=== PATIENT | male | born 1980 | race Asian ===

== ENCOUNTER 2017-05-31 01:01 | Emergency (ER) | payer OTHER ==
[~2017-05-31] VITALS: Ht 167.6 cm; Wt 68.0 kg
[2017-05-31 01:04] VITALS: BP 135/78; PULSE 97; RESP 20; TEMP 98.1; O2SAT 98
[2017-05-31] MEDS ORDERED: TETANUS/DIPHTHERIA TOXOID ADULT 0.5 ML VIAL IM ONE (01:45)
[2017-05-31] MEDS ORDERED: MORPHINE SULFATE 4 MG/ML INJ IV PUSH ONE (01:45)
[2017-05-31] MEDS ORDERED: SODIUM CHLOR 0.9% 1000 ML INJ 1,000 ML IV ONE (01:45)
[2017-05-31] MEDS ORDERED: ceFAZolin 2 GM PREMIX 50 ML IV ONE (01:45)
[2017-05-31] MEDS ORDERED: ONDANSETRON HCL 4 MG/2 ML VIAL IV PUSH ONE (01:45)
[2017-05-31 02:00] LABS: AUTOMATED NEUTROPHIL # 3.3 TH/MM3 (1.8-7.7); BASOPHIL % 0.6 % (0.0-2.0); EOSINOPHIL # 0.2 TH/MM3 (0-0.4); EOSINOPHIL % 2.7 % (0.0-4.0); HEMATOCRIT 43.1 % (39.0-51.0); HEMO FLAGS DIFF FINAL; LYMPH % 43.6 % (9.0-44.0); LYMPHOCYTE # 3.3 TH/MM3 (1.0-4.8); MEAN CELL VOLUME 99.5 FL (80.0-100.0); MEAN CORPUSCULAR HEMOGLOBIN 35.4 PG (27.0-34.0); MEAN CORPUSCULAR HGB CONC 35.6 % (32.0-36.0); MONO % 10.4 % (0.0-8.0); NEUT % 42.7 % (16.0-70.0); PLATELET COUNT 172 TH/MM3 (150-450); RED BLOOD COUNT 4.33 MIL/MM3 (4.50-5.90); RED CELL DISTRIBUTION WIDTH 12.7 % (11.6-17.2); WHITE BLOOD COUNT 7.6 TH/MM3 (4.0-11.0)
[2017-05-31] MEDS ORDERED: LIDOCAINE HCL 1% 50 ML VIAL INFIL ONE (02:00)
[2017-05-31] MEDS ORDERED: BUPIVACAINE HCL PF 0.5% 30 ML VIAL INFIL ONE (02:00)
[2017-05-31] MEDS ORDERED: MORPHINE SULFATE 8 MG/ML INJ IV PUSH ONE (02:00)
--- NOTE | 2017-05-31 02:23 | RADRPT ---
EXAM DATE/TIME: 05/31/2017 02:15 [place] COMPARISON: No previous studies available for comparison. INDICATIONS : Right hand laceration. MEDICAL HISTORY : None. SURGICAL HISTORY : None. ENCOUNTER: Initial ACUITY: 1 day PAIN SCORE: 5/10 LOCATION: Right hand. FINDINGS: Three view examination of the right hand demonstrates no dislocation, or fracture. There is soft tiss ue laceration involving the hand in the region of the 1-3 metatarsals with subcutaneous emphysema. No radiopaque foreign bodies or fracture The carpal bones appear intact. The interphalangeal and meta carpophalangeal joints are intact. Bony mineralization is normal. CONCLUSION: Soft tissue laceration without fracture or foreign body. Quincy Hodge MD on May 31, 2017 at 2:20 Board Certified Radiologist. This report was verified electronically.
[2017-05-31 02:48] LABS: PROTHROMBIN TIME - PATIENT 11.2 SEC (9.8-11.6)
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
[2017-05-31] MEDS ORDERED: TYLETAB34 PO (03:49)
[2017-05-31] MEDS ORDERED: AUGM500T7 PO (03:49)
[2017-05-31] MEDS ORDERED: BACI500O9 TOPICAL (03:50)
[2017-05-31] MEDS ORDERED: ACETAMINOPHEN/CODEINE 300 MG/30 MG TAB PO ONE (04:15)
== END 2017-05-31 04:11 | disposition home or self-care (01) ==
LOC: NEPC 01:01
DX: S61.411A Laceration without foreign body of right hand, initial encounter (principal); T23.211A Burn of second degree of right thumb (nail), initial encounter; M79.641 Pain in right hand; Z23 Encounter for immunization; W39.XXXA Discharge of firework, initial encounter
CPT/HCPCS: 12004; 73130; 85025; 85610; 90471; 90714; 96374; 96375; 96376; 99284; J0690; J2270; J2405; J7030

== ENCOUNTER 2017-06-24 19:13 | Emergency (ER) | payer OTHER ==
[~2017-06-24] VITALS: Ht 165.1 cm; Wt 45.5 kg
[~2017-06-24 19:13] MED LIST: AUGM500T7 PO; BACI500O9 TOPICAL; TYLETAB34 PO
[2017-06-24 19:15] VITALS: BP 129/82; PULSE 66; RESP 15; TEMP 98.5; O2SAT 98
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
[2017-06-24] MEDS ORDERED: IBUPROFEN 800 MG TAB PO ONE (20:00)
== END 2017-06-24 21:00 | disposition home or self-care (01) ==
LOC: NEPD 19:13
DX: Z48.02 Encounter for removal of sutures (principal); F17.200 Nicotine dependence, unspecified, uncomplicated
CPT/HCPCS: 99281